=== PATIENT | female | born 2000 | race Caucasian/White ===

== ENCOUNTER 2022-05-22 13:54 | Emergency (ER) | payer MEDICAID ==
[~2022-05-22] VITALS: Ht 160 cm; Wt 65.4 kg
[2022-05-22 14:59] VITALS: BP 109/73
--- NOTE | 2022-05-22 15:06 | NUR ---
KIP SANTORO EVALUATING PT AT TRIAGE ROOM.
[2022-05-22] MEDS ORDERED: CYCL-711 PO (15:08)
[2022-05-22] MEDS ORDERED: IBUP-1878 PO (15:08)
--- NOTE | 2022-05-22 15:40 | NUR ---
ATTEMPTED TO D/C PATIENT, NOT FOUND IN LOBBY/OUTSIDE. PT LEFT WITHOUT D/C PAPERS. RX OF FLEXERIL AND IBUPROFEN SENT TO [facility].
== END 2022-05-22 15:40 | disposition home or self-care (01) ==
LOC: MED 13:54
DX: M25.512 Pain in left shoulder (principal); X58.XXXA Exposure to other specified factors, initial encounter; Y93.89 Activity, other specified; Y92.89 Other specified places as the place of occurrence of the external cause; Y99.8 Other external cause status
CPT/HCPCS: 99283